=== PATIENT | female | born 1990 | race Caucasian/White ===

== ENCOUNTER 2022-03-27 08:49 | Outpatient (CLI) | payer BC, SELFPAY | END 2022-03-27 08:50 | disposition home or self-care (01) | LOC: LAB 08:50 | PROVIDERS: PCP Obstetrics & Gynecology; Visit Provider Physician Assistant | DX: Z34.90 Encounter for supervision of normal pregnancy, unspecified, unspecified trimester (principal) | CPT/HCPCS: 36415; 84702 ==

== ENCOUNTER 2022-04-18 15:01 | Outpatient (CLI) | payer BC, SELFPAY ==
[2022-04-18 17:50] LABS: Alanine Aminotransferase* 29 U/L (4-35); Aspartate Amino Transferase* 22 U/L (12-35); Blood Urea Nitrogen* 8 mg/dL (5-24); Creatinine* 0.7 mg/dL (0.5-1.5); Estimated Glomerular Filt Rate 120 ml/min
[2022-04-18 18:23] LABS: Hepatitis B Surface Antigen* Negative (Negative)
[2022-04-18 19:03] LABS: HIV 1/2/P24 Combo Screen* Negative (Negative)
[2022-04-18 19:12] LABS: Hepatitis C Virus Antibody* Negative (Negative)
[2022-04-20 15:32] LABS: Rapid Plasma Reagin (RPR) Non Reactive (Non Reactive)
[2022-04-20 16:17] LABS: Rubella Antibody IgG 8.4 IU/mL
== END 2022-04-18 15:02 | disposition home or self-care (01) ==
PROVIDERS: PCP Obstetrics & Gynecology; Visit Provider Registered Nurse
DX: Z34.91 Encounter for supervision of normal pregnancy, unspecified, first trimester (principal); Z87.59 Personal history of other complications of pregnancy, childbirth and the puerperium
CPT/HCPCS: 76817; 82565; 84450; 84460; 84520; 86592; 86703; 86762; 86803; 86850; 86900; 86901; 87086; 87340; 87491; 87591

== ENCOUNTER 2022-04-23 14:39 | Outpatient (CLI) | payer BC, SELFPAY ==
[2022-04-23 22:51] LABS: Collection Time Urine 24 Hours; Total Volume 24 Hour Urine 1500 ml; Urine Creatinine mg/24 Hour 0 mg/Day
[2022-04-23 22:54] LABS: Total Protein 24 Hour Urine 180 mg/dL; Total Protein Urine 12 mg/dL
[2022-04-23 23:02] LABS: Creatinine Urine 131.8 mg/dL
== END 2022-04-23 14:40 | disposition home or self-care (01) ==
LOC: LKVREF 14:40
PROVIDERS: PCP Obstetrics & Gynecology; Visit Provider Obstetrics & Gynecology
DX: Z34.91 Encounter for supervision of normal pregnancy, unspecified, first trimester (principal); Z87.59 Personal history of other complications of pregnancy, childbirth and the puerperium
CPT/HCPCS: 82570; 84156

== ENCOUNTER 2022-07-13 10:08 | Outpatient (CLI) | payer BC, SELFPAY ==
--- NOTE | 2022-07-13 10:15 | CRLHL7_ITS ---
For Patients: As a result of the Century Cures Act, medical imaging exams and procedure reports are released immediately into your electronic medical record. You may view this report before your referring provider. If you have questions, please contact your health care provider. INDICATION: Evaluate anatomy. COMPARISON: 04/18/2022 TECHNIQUE: Real time khan scale imaging of the fetus was performed as well as color Doppler analysis of the umbilical vessels. FINDINGS: Sonographic imaging demonstrates a single living intrauterine gestation. Fetus demonstrates a regular cardiac rate of 148 beats per minute. Fetus has a vertex position. The placenta lies left anterior without evidence of placenta previa. The edge of the placenta is located 6.7 cm from the internal cervical os. Prominent scar noted. Amniotic fluid volume appears normal. Single deepest vertical pocket: 4.6 cm. The cervix is closed and measures 4.5 cm in length. The composite ultrasound gestational age is calculated at 21 weeks 0 days with an estimated sonographic due date of 11/23/2022. The estimated weight is 361 grams which lies at the 76th %. The following biometric measurements were obtained: Biparietal diameter: 4.9 cm/20 weeks 6 days 81st% Head circumference: 18.7 cm/21 weeks 0 days 84th% Abdominal circumference: 15.4 cm/20 weeks 4 days 65th% Femur length: 3.3 cm/20 weeks 2 days 54th% The HC/AC ratio measures: 1.21 range (1.06-1.25) On anatomic survey, there is a normal appearance of the cerebral ventricles, cavum septi pellucidi, cisterna magna and cerebellum. The nose, lips, and facial profile appear normal. The cervical, thoracic and lumbar spine are well visualized and appear normal. There is a normal four-chamber heart view and the left and right ventricular outflow tracts appear normal. The diaphragm and stomach appear normal. The kidneys and bladder also appear normal. There is a normal three-vessel cord and the cord insertion site could not be visualized due to position. The four extremities appear normal. IMPRESSION: No intrinsic abnormalities noted on anatomic survey. Sonographic age is 1 week ahead of the clinical age. Prominent scar which should be followed up in the 3rd trimester. Dictated by Rogelio Waters MD @ 07/13/2022 11:39:13 AM (Electronically Signed)
== END 2022-07-13 10:09 | disposition home or self-care (01) ==
LOC: US 10:09
PROVIDERS: PCP Obstetrics & Gynecology; Visit Provider Registered Nurse
DX: Z34.92 Encounter for supervision of normal pregnancy, unspecified, second trimester (principal); Z3A.20 20 weeks gestation of pregnancy
CPT/HCPCS: 76805

== ENCOUNTER 2022-08-13 10:19 | Outpatient (CLI) | payer BC, SELFPAY ==
[2022-08-13 14:09] LABS: Total Protein Urine 16 mg/dL
[2022-08-13 14:13] LABS: Alanine Aminotransferase* 23 U/L (4-35); Aspartate Amino Transferase* 19 U/L (12-35); Creatinine* 0.5 mg/dL (0.5-1.5); Estimated Glomerular Filt Rate 129 ml/min
[2022-08-13 14:14] LABS: Blood Urea Nitrogen* 7 mg/dL (5-24); Uric Acid* 4.1 mg/dL (2.2-8.4)
[2022-08-13 14:19] LABS: Creatinine Urine 29.3 mg/dL
== END 2022-08-13 10:20 | disposition home or self-care (01) ==
PROVIDERS: PCP Obstetrics & Gynecology; Visit Provider Physician Assistant
DX: O13.9 Gestational [pregnancy-induced] hypertension without significant proteinuria, unspecified trimester (principal)
CPT/HCPCS: 82565; 82570; 84156; 84450; 84460; 84520; 84550

== ENCOUNTER 2022-09-07 10:05 | Outpatient (CLI) | payer BC, SELFPAY ==
[2022-09-09 23:10] LABS: Rapid Plasma Reagin (RPR) Non Reactive (Non Reactive)
== END 2022-09-07 10:06 | disposition home or self-care (01) ==
PROVIDERS: PCP Obstetrics & Gynecology; Visit Provider Physician Assistant
DX: Z34.93 Encounter for supervision of normal pregnancy, unspecified, third trimester (principal); Z3A.28 28 weeks gestation of pregnancy
CPT/HCPCS: 86592

== ENCOUNTER 2022-09-21 10:07 | Outpatient (CLI) | payer BC, SELFPAY ==
[2022-09-21 11:24] LABS: Total Protein Urine 12 mg/dL
[2022-09-21 11:25] LABS: Creatinine Urine 61.1 mg/dL
== END 2022-09-21 10:08 | disposition home or self-care (01) ==
LOC: LAB 10:09
PROVIDERS: PCP Obstetrics & Gynecology; Visit Provider Obstetrics & Gynecology
DX: O13.3 Gestational [pregnancy-induced] hypertension without significant proteinuria, third trimester (principal)
CPT/HCPCS: 76816; 82570; 84156

== ENCOUNTER 2022-11-01 08:57 | Outpatient (CLI) | payer BC, SELFPAY ==
[2022-11-02 11:42] LABS: Strep B DNA Probe NEGATIVE (Negative)
[2022-11-02 11:47] LABS: Strep B Pen/Amox Allergy No
== END 2022-11-01 08:58 | disposition home or self-care (01) ==
LOC: NFLDREF 08:58
PROVIDERS: PCP Obstetrics & Gynecology; Visit Provider Obstetrics & Gynecology
DX: Z34.93 Encounter for supervision of normal pregnancy, unspecified, third trimester (principal); Z3A.35 35 weeks gestation of pregnancy
CPT/HCPCS: 87081; 87653

== ENCOUNTER 2022-11-17 18:15 | Outpatient (CLI) | payer BC, SELFPAY ==
[2022-11-17 18:27] VITALS: PULSE 120; O2SAT 96
[2022-11-17 18:28] VITALS: BP 130/86; PULSE 121; RESP 18; TEMP 37.3
[2022-11-17 18:32] VITALS: PULSE 114; O2SAT 97
[2022-11-17 18:37] VITALS: PULSE 121; O2SAT 98
[2022-11-17 18:42] VITALS: PULSE 118; O2SAT 97
[2022-11-17 18:45] VITALS: BP 129/84; PULSE 114
[2022-11-17 18:58] LABS: SARS Antigen* POSITIVE (Negative)
--- NOTE | 2022-11-17 20:18 | PC.OBNST ---
NST Note NST Note Start: 11/17/22 18:21 Freq: ONCE Status: Active Protocol: Document 11/17/22 20:17 AMNA (Rec: 11/17/22 20:18 AMNA [id number]) NST Note 2 Para (# of births) 1 EDC 11/30/22 Gestational Age In Weeks & Days 38 Weeks & 1 Days Patient Presented with Complaint(s) of Decreased movement Reactive Yes Appropriate for Gestational Age Yes ALYSIA Silva RNC Date 11/17/22 Reactive Yes Appropriate for Gestational Age Yes ALYSIA Palomino RN Date 11/17/22 OB NST charge Yes Complete NST Note via Write Note Yes The provider's electronic signature indicates the NST is reactive/appropriate for gestational age. *Note to provider: If an addendum is required, open the patient's chart and click on the note under the Nurse/Allied Health tab.
--- NOTE | 2022-11-17 20:18 | PC.OBNST ---
NST Note NST Note Start: 11/17/22 18:21 Freq: ONCE Status: Active Protocol: Document 11/17/22 20:17 AMNA (Rec: 11/17/22 20:18 AMNA [id number]) NST Note 2 Para (# of births) 1 EDC 11/30/22 Gestational Age In Weeks & Days 38 Weeks & 1 Days Patient Presented with Complaint(s) of Decreased movement Reactive Yes Appropriate for Gestational Age Yes ALYSIA Silva RNC Date 11/17/22 Reactive Yes Appropriate for Gestational Age Yes ALYSIA Palomino RN Date 11/17/22 OB NST charge Yes Complete NST Note via Write Note Yes The provider's electronic signature indicates the NST is reactive/appropriate for gestational age. *Note to provider: If an addendum is required, open the patient's chart and click on the note under the Nurse/Allied Health tab.
== END 2022-11-17 19:55 | disposition home or self-care (01) ==
LOC: OB OUT 18:15 → OB 18:16
PROVIDERS: PCP Obstetrics & Gynecology; Visit Provider Obstetrics & Gynecology
DX: O36.8130 Decreased fetal movements, third trimester, not applicable or unspecified (principal); Z3A.38 38 weeks gestation of pregnancy
CPT/HCPCS: 59025; 87426; 87635; 99213

== ENCOUNTER 2024-08-06 15:14 | Outpatient (CLI) | payer BC, SELFPAY ==
--- OUTSIDE RECORDS SUMMARY | 2024-08-06 15:17 | XMS_ITS | Referral Summary ---
Author Organization [facility] Address [address] [place] [id number] Care Team Providers Care Insurance Professional Name Role Phone Jennifer Rivas MD Primary Care Provider Allergies No known active allergies Medications levonorgestrel-eth inyl estradiol (ALTAVERA) 0.15-30 MG-MCG per tabletIndications: Surveillance of previously prescribed contraceptive pill Take 1 tablet by mouth daily 84 tablet 3 8 Active omega 3 1000 MG CAPSIndications:Hy perlipidemia LDL goal <160 Take 2 g by mouth 2 times daily 90 capsule 8 Active MV-Min-Fe Fum-FA-DHA ( MULTI +DHA) 27-0.8-200 MG CAPS 8 Active Active Problems Problem Noted Date Diagnosed Date Migraine without aura and wi thout status migrainosus, not intractable 04/17/2018 Folliculitis 07/05/2014 Hyperlipidemia LDL goal <160 05/04/2011 Phalanx (hand) fracture 03/08/2010 Tremor 10/20/2009 Acne 10/20/2009 Generalized hyperhidrosis 04/29/2008 Resolved Problems Problem Noted Date Diagnosed Date Resolved Date Finger pain 03/09/2010 04/11/2010 Closed fracture of finger 03/09/2010 Immunizations Name Administration Dates Next Due DTAP (<7y) 04/14/1997,10/31/1993 HIB (PRP-T) 07/27/1993, 3,1992,06/28 HPV 07/19/2008,03/10/2008,01/08/2008 HepB 02/07/1994,10/31/1993,07/27/1993 Historical DTP/aP 1992,1992,06/28/19 92 MMR 04/14/1997,07/27/1993 Mantoux Tuberculin Skin Test 04/19/1993 Meningococcal (Menomune ) 10/18/2009 OPV, trivalent, live 04/14/1997,10/31/1993 TD,PF 7+ (Tenivac) 03/01/2004 TDAP Vaccine (Adacel) 07/05/2014 Varicella Pt Report Hx of Varicella/Chicken Pox 11/27/1993 Social History Tobacco Use Types Packs/Day Years Used Date Smoking Tobacco: Never Smokeless Tobacco: Never Tobacco Cessation:Counseling Given: Yes Alcohol Use Standard Drinks/Week Comments Yes 0 (1 standard drink = 0.6 oz pur e alcohol) 2-10 weekly, more socially PHQ-2 Answer Date Recorded PHQ-2 Score 0 04/17/2018 Adolescent Education Answer Date Record ed Getting School Help Needed Not on file 06/23 Comments No Sex and Gender Information Value Date Recorded Sex Assigned at Not on file Legal 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 Gender Identity Not on file Sexual Orientation Not on file Occupation Industry Job Start Date Job End 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 Not on file Not on file Not on file Find employement for people with disabilities Not on f ile Not on file Not on file Last Filed Vital Signs Vital Sign Reading Time Taken Comments Blood Pressure 116/82 04/17/2018 9:25 AM CDT Pulse 89 04/17/2018 9:25 AM CDT Temperature 37.2 C (99 F) 04/17/2018 9:25 AM CDT Respiratory Rate 20 09/14/2015 12:45 PM PASSENGER AGENT Oxygen Saturation 99% 04/17/2018 9:25 AM CDT Inhaled Oxygen Concentration - - Weight 89 kg (196 lb 2 oz) 04/17/2018 9:25 AM CD T Height 175.9 cm (5' 9.25) 04/17/2018 9:25 AM CD T Body Mass Index 28.75 04/17/2018 9:25 AM CDT Plan of Treatment Not on file Insurance [employer] Care Teams Insurance Professional Relationship Specialty Start Date End Date Jennifer Rivas MD [address] [place] [address] [phone] PCP - General Family Practice 12/24/16
--- OUTSIDE RECORDS SUMMARY | 2024-08-06 15:17 | XMS_ITS | Clinical Summary ---
Author Organization [facility] Address [address] [place] [id number] Care Team Providers Care Executive Director Contract [employer] Name Role Phone Jennifer Rivas MD Primary [...] Pt Report Hx of Varicella/Chicken Pox 11/27/1993 Family History Medical History Relation Comments Hypertension Father Prostate Cancer Maternal Grandfather Cerebrovascular Disease Maternal Grandmother jr pect stroke Other - See Comments Mother Skin lesion s - all precancerous Melanoma Paternal Grandfather Bone Cancer Paternal Grandmother ? 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 Gender Identity Not on file Sexual Orientation [...] CDT Respiratory Rate 20 09/14/2015 12:45 PM SALES ASSOCIATE KEY HOLDER Oxygen Saturation 99% 04/17/2018 9:25 AM CDT Inhaled Oxygen Concentration - - Weight 89 kg (196 lb 2 oz) 04/17/2018 9:25 AM CD T Height 175.9 cm (5' 9.25) 04/17/2018 9:25 AM CD T Body Mass Index 28.75 04/17/2018 9:25 AM CDT Plan of Treatment Not on file Insurance [employer] [facility] Care Teams Executive Director Contract Shop Relationship Specialty Start Date End Date Jennifer Rivas MD [address] [place] [address] [phone] PCP - General Family Practice 12/24/16
== END 2024-08-06 15:15 | disposition home or self-care (01) ==
PROVIDERS: Visit Provider Nurse Practitioner Family
DX: Z00.00 Encounter for general adult medical examination without abnormal findings (principal); I10 Essential (primary) hypertension; Z13.6 Encounter for screening for cardiovascular disorders
CPT/HCPCS: 80053; 80061